=== PATIENT | female | born 2000 | race Caucasian/White ===

== ENCOUNTER 2018-05-15 10:24 | Observation (INO) | payer MEDICAID ==
[~2018-05-15] VITALS: Ht 157.5 cm; Wt 86.2 kg
[2018-05-15] MEDS: LACTATED RINGERS 1,000 ML IV SCH ×3 (13:13→20:36)
== END 2018-05-16 12:35 | disposition home or self-care (01) ==
LOC: L&D 10:24 → 8 EST LDRP 10:34
PROVIDERS: ADMIT Obstetrics & Gynecology; ATTEND Obstetrics & Gynecology
DX: O36.8130 Decreased fetal movements, third trimester, not applicable or unspecified (principal); Z3A.36 36 weeks gestation of pregnancy
CPT/HCPCS: 76805; 76815; 76818; 99281; G0378; 96360

== ENCOUNTER 2019-10-04 04:18 | Emergency (ER) | payer MEDICAID ==
[~2019-10-04] VITALS: Ht 154.9 cm; Wt 55.3 kg
[2019-10-04 07:07] VITALS: BP 128/74
== END 2019-10-04 07:07 | disposition home or self-care (01) ==
LOC: ER 04:58
DX: R00.2 Palpitations (principal)
CPT/HCPCS: 93005; 99283

== ENCOUNTER 2019-12-12 00:10 | Inpatient (IN) | payer MEDICAID ==
[~2019-12-12] VITALS: Ht 154.9 cm; Wt 54.0 kg
[2019-12-12] MEDS ORDERED: FAMOTIDINE 20MG/2ML VIAL IV ONE (00:30)
[2019-12-12 01:05] LABS: BASOPHILS % 0.3 % (0.0-2.0); EOSINOPHILS % 2.7 % (0.0-5.0); HEMATOCRIT. 33.4 % (36.0-48.0); HEMOGLOBIN. 10.5 g/dL (12.0-16.0); LYMPHOCYTES % 24.1 % (20.0-50.0); MEAN CORPUSCULAR HEMOGLOBIN 19.3 pg (28.0-32.0); MEAN CORPUSCULAR VOLUME 61.7 fL (81.0-99.0); MEAN PLATELET VOLUME 8.9 fl (7.4-10.4); NEUTROPHILS % 61.9 % (40.0-76.0); PLATELET 323 x1000/uL (130-400); RED BLOOD CELL COUNT 5.41 mill/uL (4.2-5.4); RED CELL DISTRIBUTION WIDTH 17.7 % (11.6-14.6)
[2019-12-12 01:09] LABS: PLATELET ESTIMATE NORMAL
[2019-12-12 01:12] LABS: CHLORIDE 104 mEq/L (98-107)
[2019-12-12 01:59] LABS: HCG SCREEN NEGATIVE
[2019-12-12] MEDS ORDERED: KETOROLAC 60MG/2ML VIAL IM ONE (02:15)
[2019-12-12] MEDS ORDERED: MAGNESIUM/ALUMINUM HYDROXIDE/SIMETHICONE 30ML UDC PO SCH (04:45)
[2019-12-12] MEDS ORDERED: VISCOUS LIDOCAINE 2% 15 ML UDC PO SCH (04:45)
[2019-12-12 09:00] VITALS: BP 112/69
[2019-12-12 09:13] VITALS: BP 110/70
[2019-12-12] MEDS ORDERED: KETOROLAC 30MG/ML VIAL IV PRN (10:00)
[2019-12-12] MEDS ORDERED: ONDANSETRON HCL 4MG/2ML INJ IV PRN (10:45)
[2019-12-12] MEDS ORDERED: ACETAMINOPHEN 325MG TABLET PO PRN (10:45)
[2019-12-12 12:00] VITALS: BP 98/57
[2019-12-12] MEDS ORDERED: TRAMADOL 50MG TABLET PO SCH (12:15)
[2019-12-12] MEDS ORDERED: TRAMADOL 50MG TABLET PO PRN (12:15)
[2019-12-12] MEDS ORDERED: IBUP-2029 MT (14:17)
[2019-12-12] MEDS ORDERED: ENOXAPARIN 40MG/0.4ML SYR SUBCUT SCH (15:00)
[2019-12-12 16:00] VITALS: BP 125/70
[2019-12-12 16:12] LABS: *AMPHETAMINES SCREEN URINE NEGATIVE (NEGATIVE); *BARBITURATES SCREEN URINE NEGATIVE (NEGATIVE); *BENZODIAZEPINES SCREEN URINE NEGATIVE (NEGATIVE); *COCAINE SCREEN URINE NEGATIVE (NEGATIVE); METHADONE URINE SCREEN NEGATIVE (NEGATIVE); OPIATES URINE SCREEN NEGATIVE (NEGATIVE)
[2019-12-12 16:13] LABS: CANNABINOID URINE SCREEN NEGATIVE (NEGATIVE); PHENCYCLIDINE URINE SCREEN NEGATIVE (NEGATIVE)
[2019-12-12 20:00] VITALS: BP 99/61
[2019-12-13] VITALS: BP 95/58
[2019-12-13 04:00] VITALS: BP 102/62
[2019-12-13 08:00] VITALS: BP 100/60
[2019-12-13 11:08] VITALS: BP 105/62
== END 2019-12-13 11:50 | disposition home or self-care (01) | DRG 203 ==
LOC: ER 00:28 → 5WST 06:01 → ENRESERV 07:46 → 7WST 14:39
PROVIDERS: ADMIT Internal Medicine; ATTEND Internal Medicine
DX: M94.0 Chondrocostal junction syndrome [Tietze] (principal); D64.9 Anemia, unspecified; Z03.818 Encounter for observation for suspected exposure to other biological agents ruled out
CPT/HCPCS: 36415; 71045; 80053; 80305; 83880; 84484; 84703; 85025; 85379; 87635; 93005; 93970; 99285; J1650; J1885; J3490